=== PATIENT | female | born 1970 | race Hispanic/Latino ===

== ENCOUNTER → 2017-09-29 | Outpatient (CLI) | payer OTHER ==
--- NOTE | 2017-09-29 12:07 | Diagnostic Imaging Report ---
PROCEDURE:US RETROPERITONEAL ( KIDNEY ). COMPARISON:Patients [facility], [place], RENAL SCAN W/LASIX, 12/04/2016, 15:01. Patients [facility], [place], US RETROPERITONEAL ( KIDNEY )., 02/27/2017, 9:27. Patients [facility], CT, CT ABDOMEN/PELVIS WOW, 10/22/2016, 11:04. INDICATIONS:Urinary Tract Infection TECHNIQUE: Solano scale and color Doppler ultrasound kidneys FINDINGS: Right: 10 x 5 x 6.3 cm. Cortical thickness 1.6 cm. Left: 12 x 5 x 4.3 cm. Cortical thickness 1.6 cm. Both kidneys demonstrate normal parenchymal echogenicity. No conspicuous mass, stone or cyst. Persistent mild right hydronephrosis. Ureters are patent bilaterally. Urinary bladder is unremarkable. CONCLUSION: 1. Stable mild right hydronephrosis without evidence of obstruction. Findings are similar to CT, ultrasound and nuclear medicine comparison studies noted above. 2. No acute abnormality. Dictated by: Ronny Castano M.D. on 09/29/2017 at 12:09 Electronically approved by: Ronny Castano M.D. on 09/29/2017 at 12:09
== END ==
LOC: US 10:37
PROVIDERS: ATTEND Urology
DX: N39.0 Urinary tract infection, site not specified (principal)
CPT/HCPCS: 76770